=== PATIENT | female | born 1990 | race Caucasian/White ===

== ENCOUNTER → 2017-08-18 | Outpatient (CLI) | payer SELFPAY ==
[2017-08-18 14:24] LABS: BASO % 0.4 % (0.0-2.0); EOS # 0.1 (0.0-0.7); GRAN # 3.4 (1.4-6.5); GRAN % 51.3 % (42.2-75.2); LYMPH # 2.7 (1.2-3.4); LYMPH % 40.1 % (20.0-51.0); MEAN CELL VOLUME 66 fl (80.0-100.0); MEAN CORPUSCULAR HGB CONC 30 g/dl (33.0-37.0); MEAN PLATELET VOLUME 8.4 fl (7.4-10.4); MONO # 0.5 (0.1-0.6); MONO % 6.9 % (1.7-9.3); PLATELET COUNT 352 K/mm3 (130-400); RED BLOOD COUNT 4.15 M/mm3 (4.10-5.30); REDCELL DISTRIBUTION WIDTH-CV 20.2 % (11.5-14.5)
[2017-08-18 14:25] LABS: HEMATOCRIT 27.3 % (37.0-47.0); HEMOGLOBIN 8.3 g/dl (12.5-16.0); MEAN CORPUSCULAR HEMOGLOBIN 20 pg (27.0-31.0)
[2017-08-18 14:44] LABS: ERYTHROCYTE SEDIMENTATION RATE 97 mm/hr (0-20)
[2017-08-19 02:32] LABS: RHEUMATOID FACTOR-SCREEN 199 IU/mL (0-29)
[2017-08-23 22:37] LABS: ANA SCREEN with REFLEX Positive (Negative)
== END ==
LOC: COL.LAB 13:51
PROVIDERS: Family Medicine
DX: M06.9 Rheumatoid arthritis, unspecified (principal)

== ENCOUNTER → 2017-09-04 | Outpatient (CLI) | payer SELFPAY ==
[2017-09-04 16:06] LABS: IRON,SERUM 20 ug/dL (35-150)
[2017-09-04 16:15] LABS: TOTAL IRON BINDING CAPACITY 308 ug/dL (265-497)
[2017-09-04 22:51] LABS: FOLATE (FOLIC ACID) >20.0 ng/mL (7.0-31.4)
== END ==
LOC: COL.LAB 14:09
PROVIDERS: Family Medicine
DX: D64.9 Anemia, unspecified (principal)

== ENCOUNTER → 2017-09-25 | Outpatient (CLI) | payer SELFPAY ==
[2017-09-25 16:13] LABS: BASO % 0.5 % (0.0-2.0); EOS # 0.2 (0.0-0.7); GRAN # 3.8 (1.4-6.5); GRAN % 50.7 % (42.2-75.2); LYMPH % 40.2 % (20.0-51.0); MEAN CELL VOLUME 66 fl (80.0-100.0); MEAN CORPUSCULAR HGB CONC 31 g/dl (33.0-37.0); MEAN PLATELET VOLUME 9.7 fl (7.4-10.4); MONO # 0.5 (0.1-0.6); MONO % 6.1 % (1.7-9.3); PLATELET COUNT 328 K/mm3 (130-400); RED BLOOD COUNT 4.37 M/mm3 (4.10-5.30); REDCELL DISTRIBUTION WIDTH-CV 21.2 % (11.5-14.5)
[2017-09-25 16:15] LABS: HEMATOCRIT 28.9 % (37.0-47.0); HEMOGLOBIN 8.9 g/dl (12.5-16.0); MEAN CORPUSCULAR HEMOGLOBIN 20 pg (27.0-31.0)
== END ==
LOC: COL.LAB 10:31
PROVIDERS: Family Medicine
DX: D64.9 Anemia, unspecified (principal)

== ENCOUNTER → 2018-06-07 | Outpatient (CLI) | payer BC ==
[2018-06-07 13:24] LABS: COLLECTION METHOD CLEAN CATCH
[2018-06-07 13:38] LABS: PH 5 (5-8); SQUAMOUS EPITHELIAL 0-2 /hpf; URINE APPEARANCE Hazy; URINE BACTERIA Rare /hpf; URINE BILIRUBIN Negative (NEGATIVE); URINE BLOOD 2+ (NEGATIVE); URINE COLOR Amber; URINE GLUCOSE Negative (NEGATIVE); URINE KETONE Negative (NEGATIVE); URINE LEUKOCYTE ESTERASE Negative (NEGATIVE); URINE NITRATE Negative (NEGATIVE); URINE PROTEIN(semi-quant) 2+ (NEGATIVE); URINE UROBILINOGEN Negative (NEGATIVE)
[2018-06-07 13:58] LABS: URINE PROTEIN:CREAT RATIO 2.15 (0.00-0.14)
== END ==
LOC: COL.LAB 13:07
PROVIDERS: Internal Medicine Nephrology
DX: N18.2 Chronic kidney disease, stage 2 (mild) (principal); R03.0 Elevated blood-pressure reading, without diagnosis of hypertension

== ENCOUNTER → 2018-07-12 | Outpatient (CLI) | payer BC ==
[2018-07-12 15:55] LABS: CALCIUM 9.2 mg/dL (8.4-10.2); CREATININE, serum 1.83 (0.52-1.25)
[2018-07-12 15:56] LABS: URINE PROTEIN:CREAT RATIO 0.93 (0.00-0.14)
== END ==
LOC: COL.LAB 15:12
PROVIDERS: Internal Medicine Nephrology
DX: N18.2 Chronic kidney disease, stage 2 (mild) (principal); R03.0 Elevated blood-pressure reading, without diagnosis of hypertension; M06.9 Rheumatoid arthritis, unspecified

== ENCOUNTER → 2019-05-17 | Outpatient (CLI) | payer BC ==
[2019-05-17 10:41] LABS: CALCIUM 9.1 mg/dL (8.4-10.2); CREATININE, serum 1.92 (0.52-1.25); POTASSIUM 3.9 mmol/L (3.4-5.0)
== END ==
LOC: COL.LAB 10:12
PROVIDERS: Internal Medicine Nephrology
DX: N18.2 Chronic kidney disease, stage 2 (mild) (principal); I12.9 Hypertensive chronic kidney disease with stage 1 through stage 4 chronic kidney disease, or unspecified chronic kidney disease